=== PATIENT | female | born 1940 ===

== ENCOUNTER 2021-06-09 07:19 | Inpatient (IN) ==
[~2021-06-09 07:19] MED LIST: Buffered Lidocaine 1% SYRIN 1 ml INTRADERM ONE; Lactated Ringers 1000 ml BAG 1,000 ML IV SCH
[2021-06-09] MEDS ORDERED: ceFAZolin 2 GM in NS PREMIX 2 GM/100 ML BAG IVPB ONE (08:00)
[2021-06-09] MEDS ORDERED: fentaNYL 100 mcg/2 ml 50 MCG/ML VIAL ONE ×2 (08:31→09:35)
[2021-06-09] MEDS ORDERED: ROPIVACAINE 5 MG/ML 30 ML BTL (0.5%) ONE (09:08)
[2021-06-09] MEDS ORDERED: Midazolam 2 mg/2 ml VIAL 1 mg/ml 2 ml VIAL (2 mg) ONE (09:12)
[2021-06-09] MEDS ORDERED: Propofol 10 MG/ML 20 ML BTL ONE ×3 (09:52→12:14)
[2021-06-09] MEDS ORDERED: EPHEDrine (Pressors) 50 MG/ML VIAL ONE (10:03)
[2021-06-09] MEDS ORDERED: diPHENhydraMINE IV 50 MG/ML 1 ml VIAL (BENADRYL) IV PRN ×2 (10:30→10:51)
[2021-06-09] MEDS ORDERED: Ondansetron 4 mg VIAL 2 MG/ML 2 ml VIAL IV PRN ×2 (10:30→10:51)
[2021-06-09] MEDS ORDERED: Naloxone 0.4 mg VIAL 0.4 mg/ml 1 ml VIAL IV PRN (10:30)
[2021-06-09] MEDS ORDERED: Morphine 2 MG/ML SYRINGE IV PRN (10:51)
[2021-06-09] MEDS ORDERED: Lactulose 30 ml UDC PO PRN (10:51)
[2021-06-09] MEDS ORDERED: diPHENhydraMINE 25 mg TAB PO PRN (10:51)
[2021-06-09] MEDS ORDERED: Magnesium Hydroxide LIQ 30 ML UDC PO PRN (10:51)
[2021-06-09] MEDS ORDERED: Lactated Ringers 1000 ml BAG 1,000 ML IV SCH (11:00)
[2021-06-09] MEDS ORDERED: Phenylephrine 40 mcg/mL 10mL (400mcg) SYRINGE ONE (12:48)
[2021-06-09] MEDS ORDERED: Esmolol 10 MG/ML 10 ML (100 mg) ONE (12:48)
[2021-06-09] MEDS ORDERED: HYDROmorphone 1 MG/1 ML SYRINGE ONE (13:21)
[2021-06-09] MEDS: HYDROmorphone 1 MG/1 ML SYRINGE IV PRN ×5 (13:22→14:21)
[2021-06-09] MEDS: ceFAZolin 1 GM ADVAN 1 GM in NS 0.9% 50 ML 50 ML IVPB SCH (18:19)
[2021-06-09] MEDS: Ondansetron ODT 4 mg TAB 4 MG TAB PO PRN (20:27)
[2021-06-09] MEDS: Magnesium Hydroxide LIQ 30 ML UDC PO SCH (22:23)
[2021-06-10] MEDS: ceFAZolin 1 GM ADVAN 1 GM in NS 0.9% 50 ML 50 ML IVPB SCH ×2 (01:28→10:07)
[2021-06-10 06:11] LABS: Hematocrit 25 % (35-47); Hemoglobin 8.4 g/dL (12.0-16.0); Mean Platelet Volume 7.8 fL (7.4-10.4); Platelet Count 213 10^3/uL (150-450)
[2021-06-10 06:24] LABS: Calcium 8.3 mg/dL (8.6-10.3); EGFR African American 56.9 (>60); EGFR Non-African American 47.1 (>60); Potassium 3.7 mmol/L (3.5-5.0)
[2021-06-10] MEDS: Vitamin THERAPEUTIC TAB PO SCH (09:54)
[2021-06-10] MEDS: Magnesium Hydroxide LIQ 30 ML UDC PO SCH ×2 (09:54→21:55)
[2021-06-10] MEDS: Ondansetron ODT 4 mg TAB 4 MG TAB PO PRN (10:42)
[2021-06-10] MEDS: Morphine ER 15 mg TAB ** extended release PO SCH (11:42)
[2021-06-11] MEDS: Morphine ER 15 mg TAB ** extended release PO SCH ×2 (00:22→13:22)
[2021-06-11 07:58] LABS: Hematocrit 25 % (35-47); Hemoglobin 8.5 g/dL (12.0-16.0); Mean Platelet Volume 7.8 fL (7.4-10.4); Platelet Count 218 10^3/uL (150-450)
[2021-06-11] MEDS: Vitamin THERAPEUTIC TAB PO SCH (08:32)
[2021-06-11] MEDS: Ondansetron ODT 4 mg TAB 4 MG TAB PO PRN (08:36)
[2021-06-11] MEDS: Magnesium Hydroxide LIQ 30 ML UDC PO SCH ×2 (09:57→21:57)
[2021-06-11] MEDS ORDERED: Al Hydrox/Mg Hydrox/Simet LIQ 30 ML UDC PO PRN (16:26)
[2021-06-12] MEDS: Morphine ER 15 mg TAB ** extended release PO SCH ×2 (00:57→11:47)
[2021-06-12 06:39] LABS: Hematocrit 24 % (35-47); Hemoglobin 7.8 g/dL (12.0-16.0); Mean Platelet Volume 7.7 fL (7.4-10.4); Platelet Count 231 10^3/uL (150-450)
[2021-06-12] MEDS: Magnesium Hydroxide LIQ 30 ML UDC PO SCH (07:58)
[2021-06-12] MEDS: Vitamin THERAPEUTIC TAB PO SCH (07:58)
[2021-06-13] MEDS: Morphine ER 15 mg TAB ** extended release PO SCH ×2 (00:02→11:49)
[2021-06-13 06:37] LABS: Hematocrit 19 % (35-47); Hemoglobin 6.5 g/dL (12.0-16.0); Mean Platelet Volume 7.6 fL (7.4-10.4); Platelet Count 243 10^3/uL (150-450)
[2021-06-13] MEDS: Vitamin THERAPEUTIC TAB PO SCH (08:39)
[2021-06-14] MEDS: Morphine ER 15 mg TAB ** extended release PO SCH ×2 (00:37→12:23)
[2021-06-14 07:31] LABS: Hematocrit 28 % (35-47); Hemoglobin 9.6 g/dL (12.0-16.0); Mean Platelet Volume 7.8 fL (7.4-10.4); Platelet Count 253 10^3/uL (150-450)
[2021-06-14] MEDS: Vitamin THERAPEUTIC TAB PO SCH (08:04)
[2021-06-15] MEDS: Morphine ER 15 mg TAB ** extended release PO SCH ×2 (00:13→12:52)
[2021-06-15 06:59] LABS: Hematocrit 28 % (35-47); Hemoglobin 9.5 g/dL (12.0-16.0); Mean Platelet Volume 7.5 fL (7.4-10.4); Platelet Count 292 10^3/uL (150-450)
[2021-06-15] MEDS: Vitamin THERAPEUTIC TAB PO SCH (08:00)
[2021-06-15 12:08] VITALS: BP 144/61
== END 2021-06-15 16:00 | disposition home or self-care (01) | DRG 470 ==
LOC: OR 07:19 → INTOOBSV 15:21 → SSU 15:21
PROVIDERS: ADMIT Orthopaedic Surgery Adult Reconstructive Orthopaedic Surgery; ATTEND Orthopaedic Surgery Adult Reconstructive Orthopaedic Surgery